=== PATIENT | female | born 1980 | race Caucasian/White ===

== ENCOUNTER 2017-10-15 10:18 | Emergency (ER) | payer OTHER ==
[2017-10-15] MEDS ORDERED: LET GEL TOPICAL 1 EA SYR TP ONE (10:27)
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
[2017-10-15] MEDS ORDERED: TDAP ADULT 0.5 ML INJ (BOOSTRIX) IM ONE (12:06)
[2017-10-15] MEDS ORDERED: SKIN ADHESIVE (DERMABOND) 1 EACH TP ONE (12:09)
[2017-10-15 14:22] VITALS: BP 117/57
== END 2017-10-15 14:25 | disposition home or self-care (01) ==
PROC: 0HQ1XZZ Repair Face Skin, External Approach (ICD-10-PCS; principal; 2017-10-15)
DX: S62.336A Displaced fracture of neck of fifth metacarpal bone, right hand, initial encounter for closed fracture (principal); S02.5XXA Fracture of tooth (traumatic), initial encounter for closed fracture; S01.81XA Laceration without foreign body of other part of head, initial encounter; S30.810A Abrasion of lower back and pelvis, initial encounter; S60.511A Abrasion of right hand, initial encounter; S60.512A Abrasion of left hand, initial encounter; Z23 Encounter for immunization; V18.0XXA Pedal cycle driver injured in noncollision transport accident in nontraffic accident, initial encounter

== ENCOUNTER → 2019-01-04 | Outpatient (CLI) | payer BC | LOC: FIMAGING 06:38 ==